=== PATIENT | male | born 1950 | race Caucasian/White ===

== ENCOUNTER 2022-09-18 09:11 | Emergency (ER) | payer OTHER ==
[~2022-09-18] VITALS: Ht 177.8 cm; Wt 127.2 kg
[2022-09-18] MEDS ORDERED: HYDROcodone-ACET 5/325MG TAB PO ONE (10:45)
[2022-09-18] MEDS ORDERED: fentaNYL CITRATE 100 MCG/2 ML VL IV ONE (13:45)
[2022-09-18 14:25] VITALS: BP 120/70
== END 2022-09-18 15:36 | disposition home or self-care (01) ==
LOC: EDBD 09:11 → ER 09:11
DX: S82.142A Displaced bicondylar fracture of left tibia, initial encounter for closed fracture (principal); Z88.0 Allergy status to penicillin; W01.0XXA Fall on same level from slipping, tripping and stumbling without subsequent striking against object, initial encounter; Y93.89 Activity, other specified; Y92.89 Other specified places as the place of occurrence of the external cause; Y99.8 Other external cause status
CPT/HCPCS: 73562; 82962; 96374; 99285; J3010

== ENCOUNTER 2022-10-27 08:28 | Emergency (ER) | payer OTHER ==
[~2022-10-27] VITALS: Ht 177.8 cm; Wt 100.0 kg
[2022-10-27] MEDS ORDERED: CLINDAMYCIN 600MG IV 50 ML IV ONE (10:30)
[2022-10-27] MEDS ORDERED: cefTRIAXone 1GM/50ML D5W 50 ML IV ONE ×2 (10:30→12:15)
[2022-10-27 11:01] LABS: Basophils # (auto) 0 10 ^3/uL (0-0.2); Basophils % (auto) 0.6 % (0.0-2.0); Eosinophils # (auto) 0.2 10 ^3/uL (0-0.8); Eosinophils % (auto) 3.8 % (0.0-7.0); Hematocrit 44.9 % (41.0-53.0); Hemoglobin 14.8 g/dL (13.5-17.5); Lymphocytes # (auto) 1.4 10 ^3/uL (0.4-5.4); Lymphocytes % (auto) 23.2 % (10.0-50.0); Mean Corpuscular Hemoglobin 29.3 pg (28.0-32.0); Mean Corpuscular Hgb Conc. 32.9 g/dL (32.0-36.0); Mean Corpuscular Volume 88.8 fL (80.0-100.0); Monocytes # (auto) 0.6 10 ^3/uL (0-1.3); Monocytes % (auto) 9.2 % (0.0-12.0); Neutrophils # (auto) 3.9 10 ^3/uL (1.6-8.6); Neutrophils % (auto) 63.2 % (37.0-80.0); Nucleated Red Blood Cells % 0.3 %; Red Blood Cells 5.06 10^6/uL (4.5-5.90); Red Cell Distribution Width 14.2 % (11.8-14.3); White Blood Cell 6.2 10^3/uL (4.4-10.8)
[2022-10-27 11:25] LABS: Albumin 3.6 g/dL (3.4-5.0); Calcium 9.4 mg/dL (8.5-10.1); Lactic Acid w/Reflex 2.9 mmol/L (0.4-2.0); Potassium 4.3 mmol/L (3.5-5.1)
[2022-10-27 11:28] LABS: BUN/Creatinine Ratio 23.3; Bilirubin, Total 0.6 mg/dL (0.2-1.0); Total Protein 7.5 g/dL (6.4-8.2)
[2022-10-27 13:44] VITALS: BP 126/59
[2022-10-27] MEDS ORDERED: KET2TP TOP (15:05)
[2022-10-27] MEDS ORDERED: CEPH-510 PO (15:05)
== END 2022-10-27 16:30 | disposition home or self-care (01) ==
LOC: ER 08:28 → EDBD 08:28 → ER 16:30
DX: B35.3 Tinea pedis (principal); L08.89 Other specified local infections of the skin and subcutaneous tissue; E11.9 Type 2 diabetes mellitus without complications; Z88.0 Allergy status to penicillin
CPT/HCPCS: 36415; 73630; 80053; 83605; 83880; 85025; 87040; 93971; 96365; 96366; 99285; J0696

== ENCOUNTER 2025-07-29 16:55 | Emergency (ER) | payer OTHER ==
[~2025-07-29] VITALS: Ht 180.3 cm; Wt 118.8 kg
[~2025-07-29 16:55] MED LIST: CEPH-510 PO; KET2TP TOP
--- NOTE | 2025-07-29 17:21 | ED.PDOC ---
Musculoskeletal HPI Comments 75 y/o M, BIBA, with PMHx of HLD, and DM presents to the ED for CC of lower extremity swelling. EMS reports, patient is coming from [facility] where he was relayed to follow up with the ED for further care and evaluation d/t bilateral leg swelling. Patient states, he has been experiencing worsening bilateral leg swelling [id number] with associated shortness of breath on ambulation. Patient denies numbness, tingling, palpitations, or chest pain. Chief Complaint: Lower Extremity Time Seen by MD: 17:00 Primary Care Provider: MARTA Reviewed Notes: Nurses Notes, Poultry Offal Icer Notes, Medications, Allergies Allergies: Coded Allergies: Penicillins (Verified Allergy, Unknown, 09/18/22) Home Meds Active Scripts Ketoconazole (Ketoconazole) 2 % Cre, 1 % TOP BID, #60 CRE Prov:FISH MALCOLM 10/27/22 Cephalexin ( Keflex 500) 500 Mg Cap, 1 CAP PO QID, #40 CAP Prov:FISH MALCOLM 10/27/22 Information Source: Patient, Emergency Med Personnel Mode of Arrival: EMS Location: Bilateral Extremity Location: Leg Timing: Months Prehospital treatment: None Severity: Moderate Able to Move Extremity: Yes Bear Weight: Fully Pain: None Mechanism: Spontaneous Circumstances: Spontaneous Onset of Symptoms: Spontaneous Symptoms: Swelling DVT Risk Factors: NONE Associated signs and symptoms: None Past Medical History PAST MEDICAL HISTORY: DM, High Lipids Surgical History: Denies all surgeries Family History Family History: Reviewed,noncontributory to illness Social History Smoker: Non-Smoker Alcohol: Denies ETOH Use Drugs: Denies Drug Use Lives In: Home Constitutional: denies: chills, diaphoresis, fatigue, fever, malaise, sweats, weakness, others EENTM: denies: blurred vision, double vision, ear bleeding, ear discharge, ear drainage, ear pain, ear ringing, eye pain, eye redness, hearing loss, mouth pain, mouth swelling, nasal discharge, nose bleeding, nose congestion, nose pain, photophobia, tearing, throat pain, throat swelling, voice changes, others Respiratory: denies: cough, hemoptysis, orthopnea, SOB at rest, shortness of breath, SOB with excertion, stridor, wheezing, others Cardiovascular: denies: chest pain, dizzy spells, diaphoresis, Dyspnea on exertion, edema, irregular heart beat, left arm pain, lightheadedness, palpitations, PND, syncope, others Gastrointestinal: denies: abdomen distended, abdominal pain, blood streaked bowels, constipated, diarrhea, dysphagia, difficulty swallowing, hematemesis, melena, nausea, poor appetite, poor fluid intake, rectal bleeding, rectal pain, vomiting, others Genitourinary: denies: burning, dysuria, flank pain, frequency, hematuria, incontinence, penile discharge, penile sore, pain, testicle pain, testicle swelling, urgency, others Neurological: denies: dizziness, fainting, headache, left sided numbness, left sided weakness, numbness, paresthesia, pre-existing deficit, right sided numbness, right sided weakness, seizure, speech problems, tingling, tremors, wea kness, others Musculoskeletal: reports: others (bilateral leg swelling); denies: back pain, gout, joint pain, joint swelling, muscle pain, muscle stiffness, neck pain Integumetry: denies: bruises, change in color, change in hair/nails, dryness, laceration, lesions, lumps, rash, wounds, others Allergic/Immunocompromised: denies: Difficulty Healing, Frequent Infections, Hives, Itching, others Hematologic/Lymphatic: denies: anemia, blood clots, easy bleeding, easy bruising, swollen glands, others Endocrine: denies: excessive hunger, excessive sweating, excessive thirst, excessive urination, flushing, intolerance to cold, intolerance to heat, unexplained weight gain, unexplained weight loss, others Psychiatric: denies: anxiety, bipolar disorder, depression, hopeless, panic disorder, schizophrenia, sleepless, suicidal, others All Other Systems: Reviewed and Negative Physical Exam General Appearance: No Apparent Distress HEENT: Normal ENT Inspection, Pharynx Normal, TMs Normal Neck: Full Range of Motion, Non-Tender, Normal, Normal Inspection Respiratory: Chest Non-Tender, Lungs Clear, No Accessory Muscle Use, No Respiratory Distress, Normal Breath Sounds Cardiovascular: No Edema, No JVD, No Murmur, No Gallop, Normal Peripheral Pulses, Regular Rate/Rhythm Breast Exam: Deferred Gastrointestinal: No Organomegaly, Non Tender, No Pulsatile Mass, Normal Bowel Sounds, Soft Genitalia: Deferred Pelvic: Deferred Rectal: Deferred Extremities: No calf tenderness, Normal capillary refill, Pedal edema, Other (Scar to the right knee from a previous knee replacement) Musculoskeletal : Apperance: Normal Neurologic: Alert, sap bobj developer II-XII nml as Tested, Motor Weakness, Normal Affect, Normal Mood, No Sensory Deficits Cerebellar Function: Normal Reflexes: Normal Skin: Dry, Normal Color, Warm Lymphatic: No Adenopathy Was a procedure done? Was a procedure done?: No Differential Diagnosis EXT Differential Diagnosis: CHF, Deep Vein Thrombosis X-Ray, Labs, Meds, VS Vital Signs Date Time Temp Pulse Resp B/P (MAP) Pulse Ox O2 Delivery O2 Flow Rate FiO2 07/29/25 18:05 85 07/29/25 16:58 97.8 83 18 131/72 97 97.8 Lab Test 07/29/25 18:25 07/29/25 17:25 Range/Units Troponin I High Sensitivity 5 5 </=54 ng/L White Blood Count 7.1 4.4-10.8 10^3/uL Red Blood Count 4.92 4.5-5.90 10^6/uL Hemoglobin 14.5 13.5-17.5 g/dL Hematocrit 44.1 41.0-53.0 % Mean Corpuscular Volume 89.8 80.0-100.0 fL Mean Corpuscular Hemoglobin 29.6 28.0-32.0 pg Mean Corpuscular Hemoglobin Concent 32.9 32.0-36.0 g/dL Red Cell Distribution Width 14.7 H 11.8-14.3 % Platelet Count 197 140-450 10^3/uL Mean Platelet Volume 8.1 6.9-10.8 fL Neutrophils (%) (Auto) 64.7 37.0-80.0 % Lymphocytes (%) (Auto) 23.6 10.0-50.0 % Monocytes (%) (Auto) 9.4 0.0-12.0 % Eosinophils (%) (Auto) 1.6 0.0-7.0 % Basophils (%) (Auto) 0.7 0.0-2.0 % Neutrophils # (Auto) 4.6 1.6-8.6 10 ^3/uL Lymphocytes # (Auto) 1.7 0.4-5.4 10 ^3/uL Monocytes # (Auto) 0.7 0-1.3 10 ^3/uL Eosinophils # (Auto) 0.1 0-0.8 10 ^3/uL Basophils # (Auto) 0 0-0.2 10 ^3/uL Nucleated Red Blood Cells 0.1 % Sodium Level 136 136-145 mmol/L Potassium Level 4.3 3.5-5.1 mmol/L Chloride Level 102 98-107 mmol/L Carbon Dioxide Level 23 20-31 mmol/L Anion Gap 11 5-15 Blood Urea Nitrogen 25 H 9-23 mg/dL Creatinine 1.19 0.700-1.30 mg/dL Glomerular Filtration Rate Calc 63 >90 mL/min BUN/Creatinine Ratio 21.0 H 10.0-20.0 Serum Glucose 268 H 74-106 mg/dL Calcium Level 10.1 8.7-10.4 mg/dL B-Type Natriuretic Peptide 41.22 0-100 pg/mL CXY: IMPRESSION: 1. No acute cardiopulmonary disease. The patient's CBC is within normal limits The chemistry panel is within normal limits The glucose is 268 The BNP is within normal limits IV Hep-Lock was established We contacted [facility]. The patient's seems to be feeling much better. [facility] is going to follow up with the patient as an outpatient The authorization #[id number] Images Reviewed?: Images reviewed and evaluated by me Time of 1ST Reevaluation: 17:30 Reevaluation 1ST: Unchanged Patient Education/Counseling: Diagnosis, Treatment, Prognosis Family Education/Counseling: No Family Present Departure 1 Departure Time of Disposition: 19:22 Impression: Primary Impression: Leg edema, left Additional Impression: Leg edema, right Disposition: 01 HOME / SELF CARE / HOMELESS Condition: Fair Discharged With: Self Critical Care Note Critical Care Time?: No Stability Stability form required: No Heart Score Heart Score: Heart Score Response (Comments) Value History N/A 0 EKG N/A 0 Age N/A 0 Risk Factors N/A 0 Troponin N/A 0 Total 0 I personally scribed for TIMOTHY SOTO MD ([email or web address]) on 07/29/25 at 17:21. Electronically submitted by Abbie Mendez ([email or web address]). I personally scribed for TIMOTHY SOTO MD ([email or web address]) on 07/29/25 at 18:41. Electronically submitted by Abbie Mendez ([email or web address]). TIMOTHY SOTO MD Jul 29, 2025 17:21
[2025-07-29 17:38] LABS: Hematocrit 44.1 % (41.0-53.0); Hemoglobin 14.5 g/dL (13.5-17.5); Mean Corpuscular Hemoglobin 29.6 pg (28.0-32.0); Mean Corpuscular Volume 89.8 fL (80.0-100.0); Nucleated Red Blood Cells % 0.1 %
[2025-07-29 17:49] LABS: Chloride 102 mmol/L (98-107); Potassium 4.3 mmol/L (3.5-5.1); Sodium 136 mmol/L (136-145)
[2025-07-29 17:50] LABS: Anion Gap 11 (5-15); Calcium 10.1 mg/dL (8.7-10.4); Carbon Dioxide 23 mmol/L (20-31)
[2025-07-29 17:55] LABS: BUN/Creatinine Ratio 21.0 (10.0-20.0)
[2025-07-29 17:56] LABS: Blood Urea Nitrogen 25 mg/dL (9-23); Glucose 268 mg/dL (74-106)
--- NOTE | 2025-07-29 17:57 | DVH ---
TECHNIQUE: Real-time ultrasound imaging, with color Doppler and compression of the bilateral common femoral vein, femoral vein, greater saphenous vein, and popliteal vein. INDICATION: swelling COMPARISON: US RT LOWER DVT on DOS: 10/27/22 FINDINGS: There is normal compressibility and flow augmentation in all of the imaged deep veins. There are no filling defects. Right popliteal fossa hypoechoic lesion measuring 3.4 x 2.2 x 5.5 cm. No internal vascularity seen within the lesion. IMPRESSION: No evidence of DVT in the bilateral lower extremities. Right popliteal fossa hypoechoic lesion measuring 3.4 x 5.5 cm, possibly a complex Jaimes's cyst other lesions can not be ruled out. Recommend MRI of the right knee with and without contrast in the nonemergent setting to further characterize.
--- NOTE | 2025-07-29 18:10 | DVH ---
CHEST RADIOGRAPH INDICATION: sob TECHNIQUE: Single frontal view of the chest was obtained COMPARISON: None FINDINGS: Lines and Tubes: None Lungs: No focal consolidation. Pleura: No effusion. No pneumothorax. Cardiomediastinal contours: Unremarkable Bones: No acute osseous abnormality. IMPRESSION: 1. No acute cardiopulmonary disease.
--- NOTE | 2025-07-29 18:57 | ECG ---
[facility] Test Date: 2025-07-29 Test Time: 18:05:08 Pat Name: LISANDRA SPARKS Department: ED Room: Gender: M Psychologist: ER : 1950 Requested By: TIMOTHY SOTO Order Number: [id number] Reading MD: Chip Sanchez Measurements Intervals [employer] Rate: 85 P: 0 UT: 0 QRS: 75 QRSD: 107 T: 39 QT: 386 QTc: 459 Interpretive Statements Atrial fibrillation Baseline wander in lead(s) V2 Electronically Signed On 08-02-2025 15:21:24 PST by Chip Sanchez Please click the below link to view image of tracing.
[2025-07-29 19:30] VITALS: BP 160/98; PULSE 80; RESP 20; TEMP 97.5; O2SAT 97
[2025-07-29] MEDS: FUROSEMIDE 40 MG/4 ML VIAL IV ONE (19:47)
== END 2025-07-29 19:58 | disposition home or self-care (01) ==
LOC: EDBD 16:55 → ER 16:55
DX: R60.0 Localized edema (principal); E78.5 Hyperlipidemia, unspecified; E11.9 Type 2 diabetes mellitus without complications; Z79.899 Other long term (current) drug therapy; Z88.0 Allergy status to penicillin
CPT/HCPCS: 36415; 71045; 80048; 83880; 84484; 85025; 93005; 93970; 96374; 99285; J1938

== ENCOUNTER 2025-08-03 19:18 | Emergency (ER) | payer OTHER ==
[~2025-08-03] VITALS: Ht 177.8 cm; Wt 127.2 kg
--- NOTE | 2025-08-03 19:51 | ED.PDOC ---
Musculoskeletal HPI Comments This is a 75-year-old male who presents to the ED via EMS with a chief complaint of left knee pain. Patient reports standing up from his chair when he felt a pop in the left knee. Patient is currently taking Lasix for CKD. No further complaints or modifying factors at this time. Patient denies symptoms of head trauma, LOC, dizziness, weakness, or N/V/D. REVIEW OF SYSTEMS: General: No fever, no chills, or fatigue HEENT: No sore throat, no earache, no congestion, no neck pain. Cardiac: No chest pain. No palpitations. Lungs: No shortness of breath, no cough. GI: No nausea, no vomiting, no diarrhea, no constipation, no abdominal pain : No dysuria, frequency, or urgency. No hematuria. Musculoskeletal: + joint pain , no joint swelling, no extremity edema. Skin: No rash, no itching. Neuro: No headache, no dizziness, no weakness (And as sated in HPI) PHYSICAL EXAM: General: Awake, alert and oriented. No acute distress. Skin: Skin in warm, dry and intact. Appropriate color for ethnicity. HEENT: The head is normocephalic and atraumatic. Conjunctivae are clear without exudates or hemorrhage. Sclera is non-icteric. Eyelids are normal in appearance without swelling or lesions. Oral mucosa is pink and moist Neck: The neck is supple with normal range of motion. No JVD. Cardiac: Heart rate and rhythm are normal. No murmurs, gallops, or rubs are auscultated. Respiratory: No signs of respiratory distress. Extremities: (+) tenderness upon palpation to the proximal tibia, venous stasis changes bilateral lower extremities. 1+ pitting edema bilateral lower extremities. Distal pulse intact. Neurological: The patient is awake, alert and oriented to person, place, and time with normal speech. Speech is clear. There is no facial asymmetry. Psychiatric: Appropriate mood and affect. Good judgement and insight. Chief Complaint: Lower Extremity Time Seen by MD: 19:11 Primary Care Provider: MARTA Reviewed Notes: Medications, Allergies Allergies: Coded Allergies: Penicillins (Verified Allergy, Unknown, 09/18/22) Home Meds Active Scripts Ketoconazole (Ketoconazole) 2 % Cre, 1 % TOP BID, #60 CRE Prov:FISH MALCOLM 10/27/22 Cephalexin ( Keflex 500) 500 Mg Cap, 1 CAP PO QID, #40 CAP Prov:FISH MALCOLM 10/27/22 Mode of Arrival: EMS Location: Left Extremity Location: Knee Timing: Minutes Severity: Moderate Pain: Moderate Onset of Symptoms: After Trauma Symptoms: Pain Associated signs and symptoms: Knee pain Past Medical History PAST MEDICAL HISTORY: DM, High Lipids Surgical History: Denies all surgeries Family History Family History: Reviewed,noncontributory to illness Social History Smoker: Non-Smoker Alcohol: Denies ETOH Use Drugs: Denies Drug Use Lives In: Home Was a procedure done? Was a procedure done?: No Differential Diagnosis EXT Differential Diagnosis: Fracture, Sprain, Dislocation, Arthritis X-Ray, Labs, Meds, VS Vital Signs Date Time Temp Pulse Resp B/P (MAP) Pulse Ox O2 Delivery O2 Flow Rate FiO2 08/04/25 04:24 88 16 97 Nasal Cannula* 2 28 08/04/25 04:24 98.7 88 16 117/62 (80) 97 98.7 08/04/25 01:42 91 17 08/04/25 01:24 97.2 91 17 101/46 (64) 98 97.2 08/04/25 01:20 91 17 101/46 08/03/25 22:31 84 19 144/88 08/03/25 22:29 97.9 84 19 144/88 (106) 95 97.9 08/03/25 20:44 97.9 95 16 156/82 (106) 94 97.9 08/03/25 20:44 95 16 95 Room Air* 0 21 08/03/25 20:28 97.7 08/03/25 19:26 98.3 98 18 165/84 98 98.3 Lab Test 08/03/25 20:05 Range/Units White Blood Count 7.2 4.4-10.8 10^3/uL Red Blood Count 4.75 4.5-5.90 10^6/uL Hemoglobin 14.2 13.5-17.5 g/dL Hematocrit 42.3 41.0-53.0 % Mean Corpuscular Volume 89.1 80.0-100.0 fL Mean Corpuscular Hemoglobin 30.0 28.0-32.0 pg Mean Corpuscular Hemoglobin Concent 33.6 32.0-36.0 g/dL Red Cell Distribution Width 14.7 H 11.8-14.3 % Platelet Count 202 140-450 10^3/uL Mean Platelet Volume 7.9 6.9-10.8 fL Neutrophils (%) (Auto) 63.2 37.0-80.0 % Lymphocytes (%) (Auto) 25.0 10.0-50.0 % Monocytes (%) (Auto) 8.9 0.0-12.0 % Eosinophils (%) (Auto) 1.7 0.0-7.0 % Basophils (%) (Auto) 1.2 0.0-2.0 % Neutrophils # (Auto) 4.6 1.6-8.6 10 ^3/uL Lymphocytes # (Auto) 1.8 0.4-5.4 10 ^3/uL Monocytes # (Auto) 0.6 0-1.3 10 ^3/uL Eosinophils # (Auto) 0.1 0-0.8 10 ^3/uL Basophils # (Auto) 0.1 0-0.2 10 ^3/uL Nucleated Red Blood Cells 0.0 % Sodium Level 140 136-145 mmol/L Potassium Level 4.9 3.5-5.1 mmol/L Chloride Level 103 98-107 mmol/L Carbon Dioxide Level 28 20-31 mmol/L Anion Gap 9 5-15 Blood Urea Nitrogen 18 9-23 mg/dL Creatinine 1.07 0.700-1.30 mg/dL Glomerular Filtration Rate Calc 71 >90 mL/min BUN/Creatinine Ratio 16.8 10.0-20.0 Serum Glucose 201 H 74-106 mg/dL Calcium Level 10.0 8.7-10.4 mg/dL B-Type Natriuretic Peptide 45.44 0-100 pg/mL Current Medications Medications (Trade) Dose Ordered Sig/Anita Route Start Time Stop Time Status Last Admin Tramadol HCl (Ultram) 100 mg ONCE ONCE PO 08/03/25 19:45 08/03/25 19:46 DC 08/03/25 20:26 Ondansetron HCl (Zofran) 4 mg ONCE ONCE IV 08/03/25 22:15 08/03/25 22:16 DC 08/03/25 22:31 Morphine Sulfate 2 mg ONCE ONCE IV 08/03/25 22:30 08/03/25 22:31 DC 08/03/25 22:31 [place] [id number] Ph: [phone] DIAGNOSTIC IMAGING Diagnostic Imaging Report : [id number] Signed PATIENT: LISANDRA SPARKS ACCT: [id number] UNIT: [id number] : 1950 LOC: ER ROOM / BED: / AGE / SEX: 75 / M ADM STATUS: REG ER SERVICE 31 ORDERING PHYSICIAN: ALEXA PARKS MD PROCEDURE(s): LKNE4 - L KNEE 4V XRAY REASON: Left knee pain, injury ORDER NUMBER(s): [id number], ACCESSION NUMBER(s): [id number] CLINICAL HISTORY: Left knee pain, injury TECHNIQUE: 3 views of the left knee were obtained. COMPARISON: L KNEE 3V XRAY on DOS: 09/18/22 FINDINGS: There is a subtle lucency through the proximal tibial shaft. No joint effusion is evident. There are mild tricompartmental degenerative changes with osteophyte formation. There is medial and lateral compartment chondrocalcinosis. IMPRESSION: Acute proximal tibial shaft fracture. [place] [id number] Ph: [phone] DIAGNOSTIC IMAGING Diagnostic Imaging Report : [id number] Signed PATIENT: LISANDRA SPARKS ACCT: [id number] UNIT: [id number] : 1950 LOC: ER ROOM / BED: / AGE / SEX: 75 / M ADM STATUS: REG ER SERVICE 31 ORDERING PHYSICIAN: ALEXA PARKS MD PROCEDURE(s): LTBFB - L TIB FIB XRAY REASON: pain, injury ORDER NUMBER(s): [id number], ACCESSION NUMBER(s): [id number] CLINICAL INDICATION: pain, injury TECHNIQUE: 5 radiographic views of the left tibia and fibula were obtained. COMPARISON: None FINDINGS/IMPRESSION: There is acute nondisplaced fracture of the proximal tibial meta diaphysis. Suggestion of chronic fracture deformity of the proximal tibia. [id number] tricompartmental degenerative changes of the knee. Chondrocalcinosis of the knee is noted. No dislocation. [place] [id number] Ph: [phone] DIAGNOSTIC IMAGING Diagnostic Imaging Report : [id number] Signed PATIENT: LISANDRA SPARKS ACCT: [id number] UNIT: [id number] : 1950 LOC: ER ROOM / BED: / AGE / SEX: 75 / M ADM STATUS: REG ER SERVICE 38 ORDERING PHYSICIAN: ALEXA PARKS MD PROCEDURE(s): CXR1 - CHEST XRAY 1 VIEW REASON: Rule out pulmonary edema ORDER NUMBER(s): [id number], ACCESSION NUMBER(s): [id number] CLINICAL HISTORY: Rule out pulmonary edema TECHNIQUE: Single view of the chest was obtained. COMPARISON: XY CHEST PORTABLE on DOS: 07/29/25 FINDINGS: The heart size and pulmonary vasculature are normal. The lungs are clear. IMPRESSION: NO ACUTE CARDIOPULMONARY PROCESS. Time of 1ST Reevaluation: 20:28 Reevaluation 1ST: Unchanged Patient Education/Counseling: Diagnosis, Treatment, Need For Follow Up Family Education/Counseling: No Family Present Departure 1 Departure Time of Disposition: 22:40 Impression: Primary Impression: Fracture of left tibia and fibula Additional Impression: Unable to care for self Disposition: 02 SHORT TERM HOSPITAL Condition: Stable Comments 75-year-old male with left proximal tibia fracture. Long-leg splint placed in the left lower extremity. He states he is unable to care for self at home mild needing crutches for ambulation. Case discussed with [facility] physician. Patient [facility] be transferred to [facility] for further treatment, evaluation and monitoring. Critical Care Note Critical Care Time?: No Stability Stability form required: No Heart Score Heart Score: Heart Score Response (Comments) Value History N/A 0 EKG N/A 0 Age N/A 0 Risk Factors N/A 0 Troponin N/A 0 Total 0 I personally scribed for ALEXA PARKS MD ([email or web address]) on 08/03/25 at 19:51. Electronically submitted by Scarlett Lynne ([email or web address]). I personally scribed for ALEXA PARKS MD ([email or web address]) on 08/03/25 at 20:30. Electronically submitted by Scarlett Lynne ([email or web address]). ALEXA PARKS MD Aug 03, 2025 19:51
[2025-08-03 20:14] LABS: Hematocrit 42.3 % (41.0-53.0); Hemoglobin 14.2 g/dL (13.5-17.5); Mean Corpuscular Hemoglobin 30.0 pg (28.0-32.0); Mean Corpuscular Volume 89.1 fL (80.0-100.0); Nucleated Red Blood Cells % 0.0 %
--- NOTE | 2025-08-03 20:17 | DVH ---
CLINICAL HISTORY: Rule out pulmonary edema TECHNIQUE: Single view of the chest was obtained. COMPARISON: XY CHEST PORTABLE on DOS: 07/29/25 FINDINGS: The heart size and pulmonary vasculature are normal. The lungs are clear. IMPRESSION: NO ACUTE CARDIOPULMONARY PROCESS.
--- NOTE | 2025-08-03 20:18 | DVH ---
CLINICAL HISTORY: Left knee pain, injury TECHNIQUE: 3 views of the left knee were obtained. COMPARISON: L KNEE 3V XRAY on DOS: 09/18/22 FINDINGS: There is a subtle lucency through the proximal tibial shaft. No joint effusion is evident. There are mild tricompartmental degenerative changes with osteophyte formation. There is medial and lateral compartment chondrocalcinosis. IMPRESSION: Acute proximal tibial shaft fracture.
--- NOTE | 2025-08-03 20:20 | DVH ---
CLINICAL INDICATION: pain, injury TECHNIQUE: 5 radiographic views of the left tibia and fibula were obtained. COMPARISON: None FINDINGS/IMPRESSION: There is acute nondisplaced fracture of the proximal tibial meta diaphysis. Suggestion of chronic fracture deformity of the proximal tibia. [id number] tricompartmental degenerative changes of the knee. Chondrocalcinosis of the knee is noted. No dislocation.
[2025-08-03] MEDS: ACETAMINOPHEN 500 MG TAB or CAP PO ONE (20:28)
[2025-08-03 20:36] LABS: Chloride 103 mmol/L (98-107); Potassium 4.9 mmol/L (3.5-5.1); Sodium 140 mmol/L (136-145)
[2025-08-03 20:37] LABS: Anion Gap 9 (5-15); Calcium 10.0 mg/dL (8.7-10.4); Carbon Dioxide 28 mmol/L (20-31)
[2025-08-03 20:42] LABS: BUN/Creatinine Ratio 16.8 (10.0-20.0); Blood Urea Nitrogen 18 mg/dL (9-23)
[2025-08-03 20:44] VITALS: PULSE 95; RESP 16; O2SAT 95
[2025-08-03 21:02] LABS: Glucose 201 mg/dL (74-106)
[2025-08-03] MEDS ORDERED: MORPHINE SULFATE INJ 2 MG/ml SYRG IV ONE (22:15)
[2025-08-03] MEDS: MORPHINE SULFATE 4 MG/ML SYR/VIAL IV ONE (22:31)
[2025-08-03] MEDS: ONDANSETRON HCL 4 MG/2 ML VIAL IV ONE (22:31)
[2025-08-04 04:24] VITALS: PULSE 88; RESP 16; O2SAT 97
[2025-08-04] MEDS: HYDROcodone-ACET 5/325MG TAB PO ONE (13:02)
[2025-08-04 13:05] VITALS: BP 169/86; PULSE 83; RESP 18; TEMP 98.5; O2SAT 95
== END 2025-08-04 13:13 | disposition short-term general hospital (02) ==
LOC: EDBD 19:18 → ER 19:18
DX: S82.832A Other fracture of upper and lower end of left fibula, initial encounter for closed fracture (principal); S82.109A Unspecified fracture of upper end of unspecified tibia, initial encounter for closed fracture; Z79.899 Other long term (current) drug therapy; Z88.0 Allergy status to penicillin; X58.XXXA Exposure to other specified factors, initial encounter; Y93.89 Activity, other specified; Y92.89 Other specified places as the place of occurrence of the external cause; Y99.8 Other external cause status
CPT/HCPCS: 29505; 36415; 71045; 73564; 73590; 80048; 83880; 85025; 96374; 96375; 99285; J2270; J2405